=== PATIENT | male | born 2000 | race Caucasian/White ===

== ENCOUNTER 2023-10-02 19:54 | Emergency (ER) | payer SELFPAY ==
[~2023-10-02] VITALS: Ht 172.7 cm; Wt 75.0 kg
[2023-10-02] MEDS ORDERED: Midazolam 2 MG/2 ML VIAL IV ONE (20:03)
[2023-10-02] MEDS ORDERED: Midazolam 2 MG/2 ML VIAL IV PRN (20:03)
[2023-10-02] MEDS ORDERED: Etomidate 20 MG/10 ML VIAL IV ONE (20:06)
[2023-10-02] MEDS ORDERED: Succinylcholine PF 100 MG/5 ML SYRINGE/POLY AMP IV ONE (20:06)
[2023-10-02] MEDS ORDERED: fentaNYL 50 MCG/ML 2 ML VIAL IV ONE (20:10)
[2023-10-02 20:33] LABS: COLLECTION METHOD CATHETER
[2023-10-02] MEDS ORDERED: NS 64 ML IV SCH (20:36)
[2023-10-02] MEDS ORDERED: Iohexol 300 - 100 ML VIAL IV ONE (20:36)
[2023-10-02] MEDS ORDERED: NS 1,000 ML IV ONE (20:45)
[2023-10-02 20:59] LABS: PH 8.5 (5.0-8.5); URINE APPEARANCE Clear (CLEAR/HAZY); URINE BLOOD 2+ (NEGATIVE); URINE COLOR YELLOW (YELLOW); URINE GLUCOSE Negative (NEGATIVE); URINE KETONE Negative (NEGATIVE); URINE NITRATE Negative (NEGATIVE); URINE PROTEIN(semi-quant) 1+ (BEGATIVE); URINE UROBILINOGEN 0.2 E.U/dL (0.2-1.0)
[2023-10-02 21:00] LABS: TRICYCLIC ANTIDEPRESS URINE NEGATIVE (NEGATIVE)
[2023-10-02 21:08] LABS: MUCOUS Present (NOT PRESENT); SQUAMOUS EPITHELIAL 0-2 /hpf (0-10); URINE BACTERIA Rare /hpf (NONE SEEN)
[2023-10-02 21:10] VITALS: TEMP 97.8
[2023-10-02 21:37] LABS: MEAN CELL VOLUME 95 fl (80.0-100.0); MEAN CORPUSCULAR HEMOGLOBIN 30 pg (27-31); MEAN CORPUSCULAR HGB CONC 32 g/dl (33.0-37.0); MEAN PLATELET VOLUME 11.1 fl (7.4-10.4); PLATELET COUNT 340 K/mm3 (130-400); RED BLOOD COUNT 5.93 M/mm3 (4.20-5.60); REDCELL DISTRIBUTION WIDTH-CV 13.1 % (11.5-14.5)
[2023-10-02 21:38] LABS: ARTERIAL BLD GAS O2 SATURATION 99.8 % (92-100); ARTERIAL BLD GAS TCO2 CT 19.1; ARTERIAL BLOOD GAS BASE EXCESS -6.9 (-2-2); ARTERIAL BLOOD GAS PCO2 34.9 mmHg (35-45); ARTERIAL BLOOD GAS pH 7.33 (7.35-7.45)
[2023-10-02 21:38] LABS: HEMATOCRIT 56.1 % (42.0-52.0)
[2023-10-02 21:50] LABS: ACETAMINOPHEN < 7.0 ug/mL (10-30); ALANINE AMINOTRANSFERASE 24 U/L (0-55); ALBUMIN 4.8 gm/dL (3.5-5.0); ALKALINE PHOSPHATASE 62 U/L (40-150); AST,SGOT 27 U/L (5-34); BILIRUBIN,TOTAL 0.5 mg/dL (0.2-1.2); BLOOD UREA NITROGEN 11 mg/dL (9-21); CHLORIDE 104 mmol/L (98-107); CREATININE, serum 1.27 mg/dL (0.72-1.25); GLUCOSE 180 mg/dL (70-99); POTASSIUM 3.5 mmol/L (3.5-4.5); SODIUM 142 mmol/L (136-145); TOTAL PROTEIN 8.2 gm/dL (6.2-8.1)
[2023-10-02 21:51] LABS: ALCOHOL(ethanol),MEDICAL < 10 mg/dL (0-10); SALICYLATE < 5.0 mg/dL (15.0-30.0)
[2023-10-02 21:52] LABS: CARBON DIOXIDE < 6 mmol/L (22-29)
[2023-10-02 21:57] LABS: TROPONIN-I < 0.010 ng/mL (0.00-0.033)
[2023-10-02 22:23] LABS: BAND 1 % (0-10); LYMPHOCYTE 50 % (20.0-51.0); NEUTROPHILS 43 % (42.0-75.2); PLATELET ESTIMATE NORMAL (NORMAL)
[2023-10-03 00:15] VITALS: BP 122/81; PULSE 59
== END 2023-10-03 00:30 | disposition short-term general hospital (02) ==
LOC: COL.ER 19:54
PROVIDERS: Emergency Medicine
DX: S06.9XAA Unspecified intracranial injury with loss of consciousness status unknown, initial encounter (principal); R41.82 Altered mental status, unspecified; R56.9 Unspecified convulsions; V48.5XXA Car driver injured in noncollision transport accident in traffic accident, initial encounter; Y92.488 Other paved roadways as the place of occurrence of the external cause
CPT/HCPCS: A4314; J0330; J2250; J2704; J3010; J7030; Q9967